=== PATIENT | male | born 1950 | race Caucasian/White ===

== ENCOUNTER → 2016-08-19 | Outpatient (CLI) | payer MEDICARE ==
[~2016-08-19] MED LIST: AMLO5TAB2 PO; ASPI325T80 PO; DIAZ10TA PO; LISI-167 PO; OXYC-229 PO; ZOLP10TA PO
== END | disposition home or self-care (01) ==
LOC: CFH 08:17
PROVIDERS: ATTEND Internal Medicine Hematology & Oncology
DX: C91.10 Chronic lymphocytic leukemia of B-cell type not having achieved remission (principal); I82.431 Acute embolism and thrombosis of right popliteal vein

== ENCOUNTER → 2017-07-12 | Outpatient (CLI) | payer MEDICARE ==
[~2017-07-12] MED LIST changes: -OXYC-229 PO; +OXYC-307 PO
== END | disposition home or self-care (01) ==
LOC: CFH 12:21
PROVIDERS: ATTEND Family Medicine
DX: I06.0 Rheumatic aortic stenosis (principal); I10 Essential (primary) hypertension; Z85.6 Personal history of leukemia
CPT/HCPCS: 93306

== ENCOUNTER → 2017-07-15 | Outpatient (CLI) | payer MEDICARE ==
[~2017-07-15] MED LIST changes: +RIVA20TA PO
[2017-07-15 12:21] LABS: MEAN CORPUSCULAR HEMOGLOBIN 32.6 pg (27.5-34.5); MEAN CORPUSCULAR HGB CONC 32.8 g/dL (33.2-36.2); MEAN CORPUSCULAR VOLUME 99.4 fL (81-97); MEAN PLATELET VOLUME 7.5 fL (7.4-10.4); PLATELET COUNT 163 x10^3/uL (130-400); RED BLOOD COUNT 4.04 x10^6/uL (4.38-5.82); RED CELL DISTRIBUTION WIDTH 14.2 % (9.4-14.8)
[2017-07-15 12:33] LABS: MICROSCOPIC AUTO
[2017-07-15 12:36] LABS: ALBUMIN 4.3 g/dL (3.4-5.0); ANION GAP 7 mmol/L (5-15); CALCIUM 8.7 mg/dL (8.5-10.1); CHLORIDE 109 mmol/L (98-107)
[2017-07-15 12:36] LABS: CULTURE INDICATED? NO
[2017-07-15 12:42] LABS: ALANINE AMINOTRANSFERASE 19 U/L (12-78); ALKALINE PHOSPHATASE 56 U/L (45-117); BILIRUBIN,TOTAL 0.5 mg/dL (0.2-1.0); CREATININE 1.24 mg/dL (0.7-1.3)
[2017-07-15 13:05] LABS: MD YES
[2017-07-15 13:07] LABS: <RBC MORPHOLOGY> NORMAL; EOS#(MANUAL) 0.37 x10^3/uL (0.0-0.4); EOS% (MANUAL) 1 % (1-7); LYMPH#(MANUAL) 31.79 x10^3/uL (1-3.4); LYMPHS% (MANUAL) 85 % (22-44); MONOS#(MANUAL) 0.37 x10^3/uL (0.3-2.7); MONOS% (MANUAL) 1 % (2-9); SEG#(MANUAL) 4.86 x10^3/uL (1.8-6.8); SEGS% (MANUAL) 13 % (42-75); SMUDGE CELLS 1+
[2017-07-15 13:08] LABS: <PLATELET ESTIMATE> ADEQUATE; <PLT MORPHOLOGY> NORMAL PLT MORPH
== END | disposition home or self-care (01) ==
LOC: STAR 11:01
PROVIDERS: ATTEND Orthopaedic Surgery
DX: Z01.818 Encounter for other preprocedural examination (principal); M16.0 Bilateral primary osteoarthritis of hip; Z96.641 Presence of right artificial hip joint
CPT/HCPCS: 36415; 80053; 81001; 85025; 87081; 93005

== ENCOUNTER 2017-07-27 10:19 | Inpatient (IN) | payer MEDICARE ==
[~2017-07-27] VITALS: Ht 170.2 cm; Wt 87.6 kg
[2017-07-27] MEDS ORDERED: FENTANYL PF 250 MCG/5ML ONE (10:28)
[2017-07-27] MEDS ORDERED: MIDAZOLAM 1 MG/ML, 2ML ONE (10:28)
[2017-07-27] MEDS ORDERED: SODIUM CHLORIDE 0.9% 100 ML ONE (10:48)
[2017-07-27] MEDS ORDERED: EPINEPHRINE 1 MG/ML, 1ML ONE (10:48)
[2017-07-27] MEDS ORDERED: ROPIvacaine/PF 0.2%, 20 ML ONE ×3 (10:48→12:27)
[2017-07-27] MEDS ORDERED: morphine SULFATE/PF 1 MG/ML, 10ML ONE (10:48)
[2017-07-27] MEDS ORDERED: TRANEXAMIC ACID 100 MG/ML, 10ML ONE (10:48)
[2017-07-27] MEDS ORDERED: KETOROLAC 60 MG/2 ML ONE (10:48)
[2017-07-27] MEDS ORDERED: VANCOMYCIN PER PHARMACY MC STA (10:51)
[2017-07-27] MEDS ORDERED: LACTATED RINGERS 1,000 ML IV SCH (10:53)
[2017-07-27] MEDS ORDERED: MEPERIDINE/PF 25MG/0.5ML IVPush PRN (11:00)
[2017-07-27] MEDS ORDERED: ALBUTEROL SULFATE 2.5 MG/3 ML NPPB PRN (11:00)
[2017-07-27] MEDS ORDERED: METOCLOPRAMIDE 5 MG/ML, 2ML IV PRN (11:00)
[2017-07-27] MEDS ORDERED: PROMETHAZINE 25 MG/ML, 1ML IV PRN (11:00)
[2017-07-27] MEDS ORDERED: VANCOMYCIN 1,500 MG in SODIUM CHLORIDE 0.9% 250 ML IV ONE (11:00)
[2017-07-27] MEDS ORDERED: METOPROLOL 1 MG/ML, 5ML IV PRN (11:00)
[2017-07-27] MEDS ORDERED: ONDANSETRON 2MG/ML, 2ML IVPush PRN ×2 (11:00→17:00)
[2017-07-27] MEDS ORDERED: HYDROcodone/APAP 7.5-325MG/15ML UDC PO PRN (11:00)
[2017-07-27] MEDS ORDERED: ALBUTEROL/IPRATROPIUM 2.5MG/0.5MG, 3 ML NPPB PRN (11:00)
[2017-07-27] MEDS ORDERED: hydrALAzine 20 MG/ML, 1ML IV PRN (11:00)
[2017-07-27] MEDS ORDERED: morphine SULFATE 10 MG/ML, 1ML IV PRN (11:00)
[2017-07-27] MEDS ORDERED: LABETALOL 5MG/ML, 20ML IV PRN (11:00)
[2017-07-27] MEDS ORDERED: MIDAZOLAM 1 MG/ML, 2ML IV PRN (11:00)
[2017-07-27] MEDS ORDERED: GABAPENTIN 300 MG CAPSULE ONE (11:18)
[2017-07-27] MEDS ORDERED: GABAPENTIN 300 MG CAPSULE PO ONE (11:30)
[2017-07-27 11:31] VITALS: BP 154/91
[2017-07-27] MEDS ORDERED: CELE200C PO (11:38)
[2017-07-27] MEDS ORDERED: OXYC20TA59 PO (11:38)
[2017-07-27] MEDS ORDERED: ONDANSETRON 2MG/ML, 2ML ONE ×2 (11:42→14:05)
[2017-07-27] MEDS ORDERED: SUCCINYLCHOLINE 20 MG/ML, 10ML ONE (11:42)
[2017-07-27] MEDS ORDERED: PROPOFOL 10 MG/ML, 20ML ONE (11:42)
[2017-07-27] MEDS ORDERED: ROCURONIUM 10 MG/ML,10ML ONE (11:42)
[2017-07-27] MEDS ORDERED: DEXAMETHASONE 4 MG/ML, 1ML ONE (11:42)
[2017-07-27] MEDS ORDERED: CEFAZOLIN 1,000 MG ONE (11:42)
[2017-07-27] MEDS ORDERED: FENTANYL PF 100 MCG/2ML ONE (13:28)
[2017-07-27] MEDS ORDERED: OXYcodone 5 MG/5 ML ORAL.SOL UDC ONE (13:28)
[2017-07-27] MEDS: FENTANYL PF 100 MCG/2ML IV PRN ×2 (13:33→13:37)
[2017-07-27] MEDS ORDERED: HYDROcodone/APAP 7.5-325MG/15ML UDC ONE (13:56)
[2017-07-27] MEDS ORDERED: morphine SULFATE 10 MG/ML, 1ML ONE (13:56)
[2017-07-27] MEDS ORDERED: PROMETHAZINE 25 MG/ML, 1ML ONE (14:50)
[2017-07-27] MEDS ORDERED: DIPHENHYDRAMINE 25 MG CAPSULE PO PRN (17:00)
[2017-07-27] MEDS ORDERED: POTASSIUM CHLORIDE 10 MEQ in D5%-0.45% NACL 1,000 ML IV SCH (17:00)
[2017-07-27] MEDS ORDERED: OXYcodone IR 5MG TABLET PO PRN (17:00)
[2017-07-27] MEDS ORDERED: ACETAMINOPHEN 325 MG TABLET PO PRN (17:00)
[2017-07-27] MEDS ORDERED: ALUMINUM/MAG/SIMETHICONE 30 ML UDC PO PRN (17:00)
[2017-07-27] MEDS ORDERED: SENNA/DOCUSATE TABLET PO PRN (17:00)
[2017-07-27] MEDS ORDERED: BISACODYL 10 MG SUPP PR PRN (17:00)
[2017-07-27] MEDS ORDERED: MAGNESIUM HYDROXIDE 8%, 30ML UDC PO PRN (17:00)
[2017-07-27] MEDS ORDERED: ZOLPIDEM 5MG TABLET PO PRN (17:00)
[2017-07-27] MEDS ORDERED: ENOXAPARIN 40 MG/0.4 ML SQ ONE (17:30)
[2017-07-27 19:06] VITALS: BP 130/78
[2017-07-27] MEDS: DOCUSATE 100 MG CAPSULE PO SCH (21:55)
[2017-07-27] MEDS: CEFAZOLIN PMX 1GM/50ML 50 ML IVPB SCH (21:56)
[2017-07-27 23:44] VITALS: BP 110/70
[2017-07-28 03:27] VITALS: BP 104/67
[2017-07-28] MEDS: HYDROcodone/APAP 5/325 TABLET PO PRN ×3 (06:00→13:14)
[2017-07-28] MEDS: CEFAZOLIN PMX 1GM/50ML 50 ML IVPB SCH (06:00)
[2017-07-28 06:52] VITALS: BP 111/69
[2017-07-28] MEDS ORDERED: LISINOPRIL 10 MG TABLET PO SCH (09:00)
[2017-07-28] MEDS ORDERED: RIVAROXABAN 20 MG TABLET PO SCH (09:00)
[2017-07-28] MEDS ORDERED: MULTIVITAMINS/MINERALS TABLET PO SCH (09:00)
[2017-07-28] MEDS: DOCUSATE 100 MG CAPSULE PO SCH (09:05)
[2017-07-28 13:36] VITALS: BP 152/82
[2017-07-28] MEDS ORDERED: KETOROLAC 30 MG/1 ML IV SCH (17:00)
== END 2017-07-28 14:58 | disposition home or self-care (01) | DRG 470 ==
LOC: ORIP 10:19 → 4NOR 15:35 → DCLOUNGE 07-28 14:41
PROVIDERS: ADMIT Orthopaedic Surgery; ATTEND Orthopaedic Surgery
PROC: 0SRB04A Replacement of Left Hip Joint with Ceramic on Polyethylene Synthetic Substitute, Uncemented, Open Approach (ICD-10-PCS; principal; 2017-07-27 12:30)
DX: M16.12 Unilateral primary osteoarthritis, left hip (principal); I10 Essential (primary) hypertension
CPT/HCPCS: 36415; 86850; 86900; C1713; J0171; J0690; J1100; J1650; J1885; J2250; J2274; J2405; J2550; J2704; J2795; J3010; J3370; J3480; C1776; J0330; J2270; J7050; J7120

== ENCOUNTER → 2018-03-02 | Outpatient (CLI) | payer MEDICARE ==
[~2018-03-02] MED LIST changes: -AMLO5TAB2 PO; +AMLO5TAB7 PO; +CELE200C PO; +OXYC20TA59 PO
== END | disposition home or self-care (01) ==
LOC: CFH 13:36
PROVIDERS: ATTEND Orthopaedic Surgery
DX: M48.061 Spinal stenosis, lumbar region without neurogenic claudication (principal); M51.36 Other intervertebral disc degeneration, lumbar region; M25.78 Osteophyte, vertebrae; M12.88 Other specific arthropathies, not elsewhere classified, other specified site; Z96.642 Presence of left artificial hip joint
CPT/HCPCS: 72148

== ENCOUNTER → 2018-08-24 | Outpatient (CLI) | payer MEDICARE ==
[~2018-08-24] MED LIST changes: +AMLO-150 PO; -AMLO5TAB7 PO
== END | disposition home or self-care (01) ==
LOC: RAD 13:54
PROVIDERS: ATTEND Family Medicine
DX: I82.412 Acute embolism and thrombosis of left femoral vein (principal); I82.432 Acute embolism and thrombosis of left popliteal vein

== ENCOUNTER → 2019-11-24 | Outpatient (CLI) | payer MEDICARE | END | disposition home or self-care (01) | LOC: CFH 07:07 | PROVIDERS: ATTEND Pathology Hematology | DX: C91.10 Chronic lymphocytic leukemia of B-cell type not having achieved remission (principal); N28.1 Cyst of kidney, acquired | CPT/HCPCS: 76700 ==

== ENCOUNTER → 2021-01-03 | Outpatient (CLI) | payer MEDICARE ==
[~2021-01-03] MED LIST changes: -OXYC-307 PO; +OXYC-380 PO
[2021-01-03 08:48] LABS: MEAN CORPUSCULAR HEMOGLOBIN 34.6 pg (27.5-34.5); MEAN CORPUSCULAR HGB CONC 33.3 g/dL (33.2-36.2); MEAN PLATELET VOLUME 7.2 fL (7.4-10.4); PLATELET COUNT 147 x10^3/uL (130-400); RED BLOOD COUNT 3.92 x10^6/uL (4.38-5.82); RED CELL DISTRIBUTION WIDTH 14.4 % (9.4-14.8)
[2021-01-03 08:57] LABS: CHLORIDE 107 mmol/L (98-107)
[2021-01-03 09:04] LABS: ALANINE AMINOTRANSFERASE 27 U/L (12-78); ALBUMIN 4.2 g/dL (3.4-5.0); ALKALINE PHOSPHATASE 55 U/L (45-117); ANION GAP 7 mmol/L (5-15); BILIRUBIN,TOTAL 0.6 mg/dL (0.2-1.0); CALCIUM 9.7 mg/dL (8.5-10.1); CREATININE 1.76 mg/dL (0.7-1.3); TOTAL PROTEIN 7.2 g/dL (6.4-8.2)
[2021-01-03 09:25] LABS: CHOL/HDL RATIO 3.3; LDL/HDL RATIO 1.9 (0.5-3.0)
[2021-01-03 10:43] LABS: LYMPH#(MANUAL) 38.81 x10^3/uL (1-3.4); LYMPHS% (MANUAL) 88 % (22-44); MONOS#(MANUAL) 0.88 x10^3/uL (0.3-2.7); MONOS% (MANUAL) 2 % (2-9); SEG#(MANUAL) 4.41 x10^3/uL (1.8-6.8)
[2021-01-03 10:44] LABS: SEGS% (MANUAL) 10 % (42-75)
[2021-01-03 10:45] LABS: <PLATELET ESTIMATE> ADEQUATE; <PLT MORPHOLOGY> NORMAL PLT MORPH; SMUDGE CELLS 1+
== END | disposition home or self-care (01) ==
LOC: LAB 08:05
PROVIDERS: ATTEND Pathology Hematology
DX: C91.10 Chronic lymphocytic leukemia of B-cell type not having achieved remission (principal); I82.531 Chronic embolism and thrombosis of right popliteal vein; E11.69 Type 2 diabetes mellitus with other specified complication; E55.9 Vitamin D deficiency, unspecified; I12.9 Hypertensive chronic kidney disease with stage 1 through stage 4 chronic kidney disease, or unspecified chronic kidney disease; N18.4 Chronic kidney disease, stage 4 (severe); D51.3 Other dietary vitamin B12 deficiency anemia; Z79.01 Long term (current) use of anticoagulants
CPT/HCPCS: 36415; 80053; 80061; 82043; 82306; 82570; 82607; 82784; 83036; 83615; 83735; 83970; 84100; 84155; 84165; 84550; 85025; 86334